=== PATIENT | female | born 1940 | race Caucasian/White ===

== ENCOUNTER → 2016-04-26 | Outpatient (REF) | payer MEDICARE, OTHER ==
[~2016-04-26] MED LIST: /MOXI40TA PO; /ONDA4TA PO; ACET500C PO; ANTI25TA PO; BACT800T5 PO; CHEMO SQ; CHLORHEXIDINE; CLOT1CRE6 TOP; COLA100C PO; COLA100C2 OR; COMP1TAB PO; CORE3.12 PO; Compazine PO; D400400C PO; DULC10SU2 PR; FLEETOIL PR; FLON0.05; FLOVENT INH; FLUT11IN INH; FOLI1TAB PO; FURO40TA2 OR; GENTGEL OP; GENTGEL OU; LASI20TA PO; LEVA750T OR; LEVO25TABR OR; LISI2.5T OR; LISI2.5T3 PO; MEGA625S PO; MIRA3350 PO; MIRALEX PO; MUCI600T34 PO; NEOSPORIN OINTMENT TOP; NYST100024 TOP; NYSTOI TOP; NYSTPOW TOP; RANI15TA PO; SENO8.6T2 PO; SENO8.6T5 PO; SENOKOT S PO; SYNT100T PO; Synthroid PO; TYLE325T5 PO; VALT1TAB PO; VELCADE; VITA1CAP4 PO; VITAD1000T PO; VOLT1GEL24 TD; ZANT150T OR; [UNRECOGNIZED DRUG - OTHER] OU; [UNRECOGNIZED DRUG - OTHER] PO; [UNRECOGNIZED DRUG - OTHER] PO; compazine; mucinex PO
[2016-04-26 08:50] LABS: MEAN CORPUSCULAR HGB CONC 31.6 g/dl (32.0-36.5); MEAN CORPUSCULAR VOLUME 88.4 fl (80.0-96.0); WHITE BLOOD COUNT 7.1 K/mm3 (4.0-10.0)
[2016-04-26 10:22] LABS: CALCIUM LEVEL 8.7 MG/DL (8.8-10.2); CREATININE FOR GFR 1.21 MG/DL (0.55-1.02); GLOMERULAR FILTRATION RATE 46.4 (>39); POTASSIUM SERUM 5.1 MEQ/L (3.5-5.1)
== END ==
LOC: SKLAB7 07:00
PROVIDERS: ATTEND Family Medicine
DX: I11.0 Hypertensive heart disease with heart failure (principal); I50.9 Heart failure, unspecified

== ENCOUNTER → 2016-05-12 | Outpatient (REF) | payer MEDICARE, OTHER ==
[2016-05-12 13:26] LABS: MEAN CORPUSCULAR HEMOGLOBIN 27.7 pg (27.0-33.0); MEAN CORPUSCULAR HGB CONC 30.4 g/dl (32.0-36.5); MEAN CORPUSCULAR VOLUME 91.2 fl (80.0-96.0); RED CELL DISTRIBUTION WIDTH 15.5 % (11.5-14.5); WHITE BLOOD COUNT 5.8 K/mm3 (4.0-10.0)
[2016-05-12 13:49] LABS: CALCIUM LEVEL 8.5 MG/DL (8.8-10.2); CREATININE FOR GFR 1.25 MG/DL (0.55-1.02); GLOMERULAR FILTRATION RATE 44.7 (>39)
[2016-05-12 13:50] LABS: POTASSIUM SERUM 5.2 MEQ/L (3.5-5.1)
== END | disposition home or self-care (01) ==
LOC: SKLAB7 12:30
PROVIDERS: ATTEND Family Medicine
DX: I50.9 Heart failure, unspecified (principal)

== ENCOUNTER → 2016-05-13 | Outpatient (REF) | payer MEDICARE, OTHER ==
[2016-05-13 07:41] LABS: CALCIUM LEVEL 8.6 MG/DL (8.8-10.2); CREATININE FOR GFR 1.35 MG/DL (0.55-1.02); GLOMERULAR FILTRATION RATE 40.9 (>39); POTASSIUM SERUM 4.3 MEQ/L (3.5-5.1)
== END ==
LOC: SKLAB7 01:57
PROVIDERS: ATTEND Family Medicine
DX: E87.6 Hypokalemia (principal)

== ENCOUNTER → 2016-05-24 | Outpatient (REF) | payer MEDICARE, OTHER ==
[2016-05-24 09:31] LABS: MEAN CORPUSCULAR HEMOGLOBIN 27.9 pg (27.0-33.0); MEAN CORPUSCULAR HGB CONC 31.6 g/dl (32.0-36.5); MEAN CORPUSCULAR VOLUME 88.2 fl (80.0-96.0); RED CELL DISTRIBUTION WIDTH 15.4 % (11.5-14.5); WHITE BLOOD COUNT 8.6 K/mm3 (4.0-10.0)
[2016-05-24 10:02] LABS: CALCIUM LEVEL 8.7 MG/DL (8.8-10.2); CREATININE FOR GFR 0.99 MG/DL (0.55-1.02); GLOMERULAR FILTRATION RATE 58.5 (>39); POTASSIUM SERUM 4.3 MEQ/L (3.5-5.1)
== END ==
LOC: SKLAB7 08:00
PROVIDERS: ATTEND Family Medicine
DX: I11.0 Hypertensive heart disease with heart failure (principal); I50.9 Heart failure, unspecified

== ENCOUNTER → 2016-06-21 | Outpatient (REF) | payer MEDICARE, OTHER ==
[2016-06-21 08:52] LABS: MEAN CORPUSCULAR HEMOGLOBIN 26.8 pg (27.0-33.0); MEAN CORPUSCULAR HGB CONC 30.6 g/dl (32.0-36.5); MEAN CORPUSCULAR VOLUME 87.7 fl (80.0-96.0); RED CELL DISTRIBUTION WIDTH 16.2 % (11.5-14.5); WHITE BLOOD COUNT 8.5 K/mm3 (4.0-10.0)
[2016-06-21 09:04] LABS: CALCIUM LEVEL 8.4 MG/DL (8.8-10.2); CREATININE FOR GFR 1.15 MG/DL (0.55-1.02); GLOMERULAR FILTRATION RATE 49.2 (>39); POTASSIUM SERUM 4.8 MEQ/L (3.5-5.1)
== END ==
LOC: SKLAB7 07:00
PROVIDERS: ATTEND Family Medicine
DX: I11.0 Hypertensive heart disease with heart failure (principal); I50.9 Heart failure, unspecified

== ENCOUNTER → 2016-06-23 | Outpatient (REF) | payer MEDICARE, OTHER ==
[2016-06-23 08:05] LABS: CALCIUM LEVEL 8.2 MG/DL (8.8-10.2); CREATININE FOR GFR 0.97 MG/DL (0.55-1.02); GLOMERULAR FILTRATION RATE 59.9 (>39); POTASSIUM SERUM 4.9 MEQ/L (3.5-5.1)
== END ==
LOC: SKLAB7 06-22 22:42
PROVIDERS: ATTEND Family Medicine
DX: E86.0 Dehydration (principal)

== ENCOUNTER → 2016-06-25 | Outpatient (REF) | payer MEDICARE, OTHER ==
[2016-06-25 08:56] LABS: CREATININE FOR GFR 1.09 MG/DL (0.55-1.02); GLOMERULAR FILTRATION RATE 52.4 (>39)
[2016-06-25 08:58] LABS: POTASSIUM SERUM 5.2 MEQ/L (3.5-5.1)
== END ==
LOC: SKLAB7 08:22
PROVIDERS: ATTEND Family Medicine
DX: I11.0 Hypertensive heart disease with heart failure (principal); I50.9 Heart failure, unspecified

== ENCOUNTER → 2016-06-28 | Outpatient (REF) | payer MEDICARE, OTHER ==
[~2016-06-28] MED LIST changes: +ESCI10TA2 PO; +MILKSUS PO; +MULT1TAB10 PO; +NEUR100C PO; +SYST0.4D2 OP; +TRAM1CAP15 PO
[2016-06-28 10:11] LABS: CALCIUM LEVEL 8.2 MG/DL (8.8-10.2); CREATININE FOR GFR 1.09 MG/DL (0.55-1.02); GLOMERULAR FILTRATION RATE 52.4 (>39)
[2016-06-28 10:23] LABS: POTASSIUM SERUM 5.4 MEQ/L (3.5-5.1)
== END ==
LOC: SKLAB7 10:12
PROVIDERS: ATTEND Family Medicine
DX: I11.0 Hypertensive heart disease with heart failure (principal); I50.9 Heart failure, unspecified

== ENCOUNTER → 2016-07-02 | Outpatient (REF) | payer MEDICARE, OTHER ==
[2016-07-02 10:23] LABS: CALCIUM LEVEL 8.2 MG/DL (8.8-10.2); CREATININE FOR GFR 1.36 MG/DL (0.55-1.02); GLOMERULAR FILTRATION RATE 40.6 (>39)
[2016-07-02 10:27] LABS: POTASSIUM SERUM 5.5 MEQ/L (3.5-5.1)
== END ==
LOC: SKLAB7 09:16
PROVIDERS: ATTEND Family Medicine
DX: I11.0 Hypertensive heart disease with heart failure (principal); I50.9 Heart failure, unspecified

== ENCOUNTER 2016-07-03 10:04 | Emergency (ER) | payer MEDICARE, OTHER ==
[~2016-07-03 10:04] MED LIST changes: -COLA100C PO; +COLA100C3 PO; -ESCI10TA2 PO; -MILKSUS PO; -MULT1TAB10 PO; -NEUR100C PO; -SYST0.4D2 OP; -TRAM1CAP15 PO
[2016-07-03] MEDS ORDERED: MILKSUS PO (10:38)
[2016-07-03] MEDS ORDERED: NEUR100C PO (10:38)
[2016-07-03] MEDS ORDERED: MULT1TAB10 PO (10:38)
[2016-07-03] MEDS ORDERED: SYST0.4D2 OP (10:38)
[2016-07-03] MEDS ORDERED: TRAM1CAP15 PO (10:38)
[2016-07-03] MEDS ORDERED: ESCI10TA2 PO (10:38)
== END 2016-07-03 14:52 | disposition expired ==
LOC: M ED 10:40
DX: I46.9 Cardiac arrest, cause unspecified (principal); I50.9 Heart failure, unspecified; I10 Essential (primary) hypertension; Z86.14 Personal history of Methicillin resistant Staphylococcus aureus infection; M19.90 Unspecified osteoarthritis, unspecified site; M06.9 Rheumatoid arthritis, unspecified; F41.9 Anxiety disorder, unspecified; Z79.899 Other long term (current) drug therapy; Z88.0 Allergy status to penicillin; Z88.1 Allergy status to other antibiotic agents

== ENCOUNTER → 2016-07-03 | Outpatient (REF) | payer MEDICARE, OTHER ==
[2016-07-03 08:50] LABS: CALCIUM LEVEL 7.8 MG/DL (8.8-10.2); CREATININE FOR GFR 1.25 MG/DL (0.55-1.02); GLOMERULAR FILTRATION RATE 44.7 (>39)
[2016-07-03 08:58] LABS: POTASSIUM SERUM 5.8 MEQ/L (3.5-5.1)
== END ==
LOC: SKLAB7 06:59
PROVIDERS: ATTEND Family Medicine
DX: I50.9 Heart failure, unspecified (principal); I10 Essential (primary) hypertension